=== PATIENT | female | born 1930 | race African-American/Black ===

== ENCOUNTER 2019-04-11 15:47 | Inpatient (IN) | payer OTHER, MEDICAID ==
[~2019-04-11] VITALS: Ht 172.7 cm; Wt 63.5 kg
[2019-04-11 17:05] VITALS: BP_SYST 111
--- NOTE | 2019-04-11 17:05 | NUR ---
ADMISSION NOTE: Received patient from Ambulance via gurney. Patient admitted with diagnosis of renal insufficiency and encephalopathy. Patient is awake, alert, oriented X 1. Patient oriented to hospital room, call light, toileting, pain management and safety-teach back done. Patient informed that their room number is 121 C. Personal belongings checked and Belongings List documented. Call light within reach.
--- NOTE | 2019-04-11 17:10 | NUR ---
INITIAL NOTE: RECEIVED PATIENT FROM AMBULANCE VIA DIRECT ADMIT. PATIENT IS AWAKE AND ALERT x1. PATIENT DENIES ANY PAIN AT THE MOMENT. IV INSERTED INTO RIGHT AC 20G. SUCCESSFUL AFTER ONE ATTEMPT. ASEPTIC TECHNIQUE USED. PATIENT TOLERATED IT WELL. PATIENT IS TOLERATING OXYGEN ON ROOM AIR WITH NO SIGNS OF DISTRESS OR SHORTNESS OF BREATH NOTED. PATIENT IN STABLE CONDITION. SAFETY, FALL AND ASPIRATION PRECAUTIONS ARE IN PLACE. BED LOCKED IN LOWEST POSITION WITH CALL LIGHT IN REACH. WILL CONTINUE TO MONITOR PATIENT FOR ANY CHANGES.
[2019-04-11] MEDS ORDERED: FER300L PO (18:03)
[2019-04-11] MEDS ORDERED: FLEETMO RC (18:03)
[2019-04-11] MEDS ORDERED: INSU100V SQ (18:03)
[2019-04-11] MEDS ORDERED: DONE10TA44 PO (18:03)
[2019-04-11] MEDS ORDERED: INSU100V9 SQ (18:03)
[2019-04-11] MEDS ORDERED: LEVO88TA5 PO (18:03)
[2019-04-11] MEDS ORDERED: DOCU-144 PO (18:03)
[2019-04-11] MEDS ORDERED: MOM PO (18:03)
[2019-04-11] MEDS ORDERED: ACET325T53 PO (18:03)
[2019-04-11] MEDS ORDERED: MULT-1089 PO (18:03)
[2019-04-11] MEDS ORDERED: BISA-79 PR (18:03)
[2019-04-11] MEDS ORDERED: GLU500 PO (18:03)
[2019-04-11] MEDS ORDERED: ASCO500T20 PO (18:03)
[2019-04-11] MEDS ORDERED: ASPI-1155 PO (18:03)
--- NOTE | 2019-04-11 19:30 | NUR ---
Opening notes Received report. Patient is resting in bed. No signs of distress noted. Breathing even and unlabored. IV patent and intact. No signs of infiltration noted. No needs at this time. call light with the patient. Safety precautions in place.
[2019-04-11 20:00] VITALS: BP_SYST 118
--- NOTE | 2019-04-11 20:00 | NUR ---
Spoke to Dr. Chung for orders. Orders given and inputted.
--- NOTE | 2019-04-11 21:00 | NUR ---
Dr. Chung at bedside. Seen and examined patient.
[2019-04-11] MEDS ORDERED: ACETAMINOPHEN 325 MG TABLET PO PRN (21:15)
[2019-04-11] MEDS ORDERED: MINERAL OIL 133 ML ENEMA RC PRN (21:15)
[2019-04-11] MEDS ORDERED: INSULIN LISPRO SLIDING SCALE 100 UNITS/ML VIAL (humaLOG) SQ SCH (21:15)
--- NOTE | 2019-04-11 23:30 | NUR ---
Resting Patient resting. No signs of distress noted. Breathing even and unlabored. IVF started. No needs. Call light with the patient. Safety precautions in place.
[2019-04-11] MEDS: D5/0.45 NS 1,000 ML IV SCH (23:33)
[2019-04-12 01:46] VITALS: BP_SYST 133
--- NOTE | 2019-04-12 02:00 | NUR ---
Sleeping No signs of distress noted. Breathing even and unlabored. IVF infusing well. Call light with the patient. Safety precautions in place.
--- NOTE | 2019-04-12 04:42 | NUR ---
Resting Patient is resting and singing in bed. No signs of distress noted. Breathing even and unlabored. IVF infusing well. Call light with the patient. Safety precautions in place.
[2019-04-12] MEDS: LEVOTHYROXINE SODIUM 0.088 MG TABLET PO SCH (06:00)
[2019-04-12] MEDS: INSULIN GLARGINE 100 UNITS/ML 10 ML VIAL SQ SCH ×2 (06:16→17:00)
[2019-04-12] MEDS: INSULIN LISPRO SLIDING SCALE 100 UNITS/ML VIAL (humaLOG) SUBCUT PRN ×3 (06:17→21:59)
--- NOTE | 2019-04-12 06:49 | NUR ---
Closing notes Patient resting in bed, accucheck 165. insulin given. Educated the action and side effects. Patient verbalized understanding. No signs of distress noted. Breathing even and unlabored. IVF infusing well. Patient incontinent and unable to collect urine sample. Will endorse to day shift. All needs met throughout the shift. call light with the patient. Safety precautions in place. Will endorse care to day shift RN.
--- NOTE | 2019-04-12 06:52 | NUR ---
Nutrition Update Tommie Scale 15 noted. Pt admitted for Renal insufficiency, Encephalopathy Diet: Mechanical soft BMI: 21.3 kg/m2 RD to follow per nutrition care standards.
--- NOTE | 2019-04-12 07:30 | NUR ---
OPENING NOTES: PATIENT IS AWAKE AND ALERT x1 LAYING DOWN IN BED. PATIENT DENIES ANY PAIN AT THE MOMENT. PATIENT IS TOLERATING OXYGEN ON ROOM AIR WITH NO SIGNS OF DISTRESS OR SHORTNESS OF BREATH NOTED. IV SITE INTACT AND RUNNING FLUIDS ORDERED. PATIENT IN STABLE CONDITION. SAFETY, FALL AND ASPIRATION PRECAUTIONS ARE IN PLACE. BED LOCKED IN LOWEST POSITION WITH CALL LIGHT IN REACH. WILL CONTINUE TO MONITOR PATIENT FOR ANY CHANGES.
[2019-04-12 08:00] VITALS: BP_SYST 136
[2019-04-12] MEDS: metFORMIN HCL 500 MG TABLET PO SCH ×3 (08:00→18:00)
[2019-04-12] MEDS: DONEPEZIL HCL 5 MG TABLET (ARICEPT) PO SCH ×2 (09:00→10:53)
[2019-04-12] MEDS: DOCUSATE SODIUM 100 MG CAPSULE PO SCH ×2 (09:00→10:52)
[2019-04-12] MEDS: MULTIVITAMINS TAB 1 TABLET PO SCH ×2 (09:00→10:52)
[2019-04-12] MEDS: BISACODYL 5 MG TABLET.DR (DULCOLAX) PO SCH ×2 (09:00→10:53)
[2019-04-12] MEDS: ASCORBIC ACID 500 MG TABLET PO SCH ×2 (09:00→10:53)
[2019-04-12] MEDS: FERROUS SULFATE 325 MG TABLET.DR PO SCH ×2 (09:00→10:52)
[2019-04-12] MEDS: ASPIRIN 81 MG TAB.CHEW PO SCH ×2 (09:00→10:52)
[2019-04-12 09:19] LABS: BASOPHILS % (AUTO) 0.5 % (0.0-2.0); EOSINOPHILS # (AUTO) 0.1 K/uL (0.0-0.4); EOSINOPHILS % (AUTO) 2.9 % (0.0-4.0); HEMOGLOBIN 12.1 g/dL (12.0-16.0); LYMPHOCYTES # (AUTO) 1.8 K/uL (1.0-5.5); LYMPHOCYTES % (AUTO) 37.9 % (20.5-51.5); MEAN CORPUSCULAR HEMOGLOBIN 30 pg (27-31); MEAN CORPUSCULAR HGB CONC 33 % (32-36); MEAN CORPUSCULAR VOLUME 90 fL (79.0-98.0); MONOCYTES # (AUTO) 0.3 K/uL (0.0-1.0); MONOCYTES % (AUTO) 6.4 % (1.7-9.3); NEUTROPHILS # (AUTO) 2.5 K/uL (1.8-7.7); NEUTROPHILS % (AUTO) 52.3 % (40.0-70.0); PLATELET COUNT (AUTO) 217 K/uL (130-430); RED BLOOD CELL COUNT(AUTO) 4.09 MIL/uL (4.2-6.2); RED CELL DISTRIBUTION WIDTH 14.2 % (9.0-15.0); WHITE BLOOD COUNT (AUTO) 4.8 K/uL (4.8-10.8)
[2019-04-12 09:31] LABS: ALANINE AMINOTRANSFERASE 19 U/L (12-78); ALBUMIN 2.8 g/dL (3.4-4.8); ANION GAP 6 (5-15); ASPARTATE AMINOTRANSFERASE 12 U/L (10-37); CALCIUM 8.4 mg/dL (8.4-11.0); CHLORIDE 102 mmol/L (98-107); CREATININE 0.48 mg/dL (0.55-1.30); GLUCOSE 166 mg/dL (70-99); POTASSIUM 4.4 mmol/L (3.5-5.1); SODIUM SERUM 136 mmol/L (136-145); THYROID STIMULATING HORMONE 2.32 uIu/mL (0.36-3.74); TOTAL BILIRUBIN 1.1 mg/dL (0.0-1.0); UREA NITROGEN, BLOOD 15 mg/dL (8-21)
[2019-04-12 09:57] LABS: CHOLESTEROL 102 mg/dL (<200); HDL CHOLESTEROL 51 mg/dL (>55); LDL CHOLESTEROL 40 mg/dL (<100); TRIGLYCERIDES 77 mg/dL (30-150)
--- NOTE | 2019-04-12 10:05 | NUR ---
RN ROUNDS: PATIENT IS ASLEEP LAYING DOWN IN BED. NO SIGNS OF DISTRESS OR SHORTNESS OF BREATH NOTED. PATIENT IN STABLE CONDITION. WILL CONTINUE TO MONITOR PATIENT FOR ANY CHANGES.
--- NOTE | 2019-04-12 10:33 | NUR ---
Nephro consult called: for Dr. Andre, regarding renal insufficiency, ordered by Dr. Chung, spoke with Fanny.
[2019-04-12 12:03] VITALS: BP_SYST 126
--- NOTE | 2019-04-12 12:10 | NUR ---
RN ROUNDS: PATIENT IS AWAKE AND ALERT x 1 LAYING DOWN IN BED. PATIENT DENIES ANY PAIN AT THE MOMENT. NO SIGNS OF DISTRESS OR SHORTNESS OF BREATH NOTED. PATIENT IN STABLE CONDITION.
[2019-04-12] MEDS: D5/0.45 NS 1,000 ML IV SCH (12:31)
--- NOTE | 2019-04-12 14:30 | NUR ---
RN ROUNDS: PATIENT IS AWAKE AND ALERT x1 LAYING DOWN WATCHING TELEVISION IN BED. NO SIGNS OF DISTRESS OR SHORTNESS OF BREATH NOTED. PATIENT DENIES ANY PAIN AT THE MOMENT. PATIENT IN STABLE CONDITION. WILL CONTINUE TO MONITOR PATIENT FOR ANY CHANGES.
[2019-04-12 16:18] VITALS: BP_SYST 126
--- NOTE | 2019-04-12 16:20 | NUR ---
RN ROUNDS: PATIENT IS ASLEEP IN BED. NO SIGNS OF DISTRESS OR SHORTNESS OF BREATH NOTED. PATIENT IN STABLE CONDITION. WILL CONTINUE TO MONITOR PATIENT FOR ANY CHANGES.
--- NOTE | 2019-04-12 17:30 | NUR ---
MD ROUNDS: DR. LEVY MAKING HIS ROUNDS. AWARE OF PATIENT'S CONDITION. NEW ORDERS GIVEN.
--- NOTE | 2019-04-12 18:31 | NUR ---
CLOSING NOTES: PATIENT IS AWAKE AND ALERT x1 LAYING DOWN IN BED. PATIENT DENIES ANY PAIN AT THE MOMENT. PATIENT IS TOLERATING OXYGEN ON ROOM AIR WITH NO SIGNS OF DISTRESS OR SHORTNESS OF BREATH NOTED. IV SITE INTACT AND RUNNING FLUIDS ORDERED. PATIENT IN STABLE CONDITION. SAFETY, FALL AND ASPIRATION PRECAUTIONS REMAINED IN PLACE THROUGHOUT THE SHIFT. BED LOCKED IN LOWEST POSITION WITH CALL LIGHT IN REACH. WILL ENDORSE PATIENT CARE TO ONCOMING HUMAN RESOURCES CLERK NURSE.
[2019-04-12 19:00] VITALS: BP_SYST 125
--- NOTE | 2019-04-12 19:15 | NUR ---
change of shift.pt.presents quiescent affect;calm,resting.pt.presents iv access intact;patent iv fluids infusing. general status stable.respiratory status stable;unlabored:@tra air.call light/telephone w/in reach of the pt.
[2019-04-12 20:00] VITALS: BP_SYST 125
--- NOTE | 2019-04-12 20:00 | NUR ---
pt.assessed.v/s assessed;values w/inn nropa m,limits.pt prst affxctc;aclm,loc;confused.no c/o pain,nausea.pt.presents iv access intact; patent iv fluids infusing.general status stable.respiratory status stable;unlabored.no o2 therapy administered.02-sat%=96% @room air.pt.assessed for cleanliness.pt.repositioned.call light/telephone placed w/in reach of the pt.
--- NOTE | 2019-04-12 20:30 | NUR ---
i have assessed the blood glucose;value;227mg/dl.i have apprised the pt.of the value.
[2019-04-12] MEDS: MILK OF MAGNESIA 30 ML UDC PO SCH (21:00)
--- NOTE | 2019-04-12 21:00 | NUR ---
2100pmedication;mo.pt.refused the administration:mom.i reviewed the indication for the medication.pt awais;refused . Addendum: 04/13/19 at 0132 by Augustin Patricia RN i have administered insulin;humalog;4-u per the sliding scale.
--- NOTE | 2019-04-12 22:00 | NUR ---
pt.assessed.pt.presents quiescent affect;calm.resting.no c/o pain,nausea.pt.assessed for cleanliness.pt repositioned.iv access intact;patent iv fluids infusing.general statu stable.respiratory status stable;unlabored.02-sat%=96%.call light/telephone placed \ w/in reach of the pt.
--- NOTE | 2019-04-13 | NUR ---
pt.assessed.v/s assessed:values w/in normal limits.pt.assessed for cleanliness.pt.repositioned.iv access intact patent: iv fluids infusing. general status stable.respiratory status stable;02-sat%=96%.no c/o pain,nausea.call light/telephone placed w/in reach of the pt.
[2019-04-13 01:48] VITALS: BP_SYST 133
--- NOTE | 2019-04-13 02:00 | NUR ---
pt.assessed.pt.presents quiescent affect;calm,somnolent.pt.assessed for cleanliness.pt.repositioned.iv fluids infusing. general statu stable.respiratory status stable;unlabored.call light/telephone paled w/in the reach of the pt.
--- NOTE | 2019-04-13 04:00 | NUR ---
pt.assessed.pt.presents quiescent affect;calm,somnolent.pt assessed for cleanliness.pt.repositioned.iv access intact;patent. general statu stable.respiratory status stable;unlabored.call light/telephone placed w/in reach of the pt.
[2019-04-13] MEDS: LEVOTHYROXINE SODIUM 0.088 MG TABLET PO SCH (05:49)
[2019-04-13] MEDS: D5/0.45 NS 1,000 ML IV SCH ×2 (05:49→15:00)
[2019-04-13] MEDS: INSULIN LISPRO SLIDING SCALE 100 UNITS/ML VIAL (humaLOG) SUBCUT PRN ×4 (05:55→22:09)
[2019-04-13] MEDS: INSULIN GLARGINE 100 UNITS/ML 10 ML VIAL SQ SCH ×2 (05:57→17:52)
--- NOTE | 2019-04-13 06:30 | NUR ---
pt.assessed.pt.assessed for cleanliness.pt repositioned.i have changed the iv fluids bag.i have assessed the blood glucose;values;158mg/dl. i have administered insulin:humalo-units peer sliding scale..i have administered lantus;5units;scheduled.no c/o pain, nausea.call light/telephone placed w/in reach of the pt.
--- NOTE | 2019-04-13 08:00 | NUR ---
received awake and in no c/o discomfort vss repositioned in bed incontinent and cleaned iv infusing set up for breakfast continue to monitor
[2019-04-13] MEDS: BISACODYL 5 MG TABLET.DR (DULCOLAX) PO SCH (09:00)
[2019-04-13] MEDS: DOCUSATE SODIUM 100 MG CAPSULE PO SCH (10:02)
[2019-04-13] MEDS: metFORMIN HCL 500 MG TABLET PO SCH ×2 (10:02→18:56)
[2019-04-13] MEDS: MULTIVITAMINS TAB 1 TABLET PO SCH (10:02)
[2019-04-13] MEDS: ASPIRIN 81 MG TAB.CHEW PO SCH (10:02)
[2019-04-13] MEDS: ASCORBIC ACID 500 MG TABLET PO SCH (10:02)
[2019-04-13] MEDS: DONEPEZIL HCL 5 MG TABLET (ARICEPT) PO SCH (10:02)
[2019-04-13] MEDS: FERROUS SULFATE 325 MG TABLET.DR PO SCH (10:03)
[2019-04-13 12:12] VITALS: BP_SYST 135
[2019-04-13 16:13] VITALS: BP_SYST 132
--- NOTE | 2019-04-13 17:30 | NUR ---
Nutrition Assessment (short note d/t high patient load) A - RD reviewed pertinent nutrition-related info via EMR (physician notes/nursing notes/labs/meds/nursing care trends/care activity). Admission Dx: Renal insufficiency, encephalopathy PMH: DM, dementia, HTN, OA, anemia, thyroid Dz, increased generalized muscle weakness per physician notes Current Diet Order/Nutrition Support: Mechanical soft x1 day Ht: 68"/5'8" Wt: 141#/64 kg IBW: 140#/64 kg %IBW: 100% UBW: Unknown %UBW: Unknown BMI: 21.3 kg/m2 (normal) Subjective Info: RD Notification received for unintentional wt loss in the last 3 months and pt eating poorly greater than 1 week TARGET MAN. Pt was seen resting in bed earlier today. Pt reported good appetite, tolerating diet well. Pt refused GT placement per physician notes. Per EMR, PO intake records indicated 75% average x3 meals. Pt was unable to clearly respond to other RD verbal interview questions. Nutrition education is not appropriate. ESTIMATED NUTRITIONAL NEEDS CALORIES/DAY: 1980-4327 kcal/day (25-30 kcal/kg CBW for geriatric maintenance) PROTEIN/DAY: 64-77 gm/day (1-1.2 gm/kg CBW for geriatric maintenance) FLUID/DAY: 1.6-2 L/day (1 ml/kcal/day for maintenance) D - Altered nutrition-related labs related to endocrine dysfunction as evidenced by elevated BG and POC BG lab values. Suboptimal PO intakes related to possible lack of appetite TARGET MAN as evidenced by nursing trigger indicating pt eating poorly greater than 1 week. I - Recommend mechanical soft, CCHO diet w/ Glucerna BID (ONS provides 440 kcal/day, 20 gm protein/day) M - Monitor appetite and PO intakes w/ goal of pt meeting at least 80% of estimated nutritional needs, labs trending WNL, normal GI function, and skin integrity/wt maintenance E - Moderate risk; F/U within 3-5 days
--- NOTE | 2019-04-13 17:35 | NUR ---
Dietitian Recommendations * Recommend mechanical soft, CCHO diet w/ Glucerna BID (ONS provides 440 kcal/day, 20 gm protein/day) LP, RD Please refer to Nutrition Assessment fo details.
--- NOTE | 2019-04-13 19:00 | NUR ---
1800 removed iv and new attempt made but refusing and will endorse to shift production associate to start later repositioned in bed no c/o discomfort.
[2019-04-13 20:00] VITALS: BP_SYST 131
[2019-04-13] MEDS: MILK OF MAGNESIA 30 ML UDC PO SCH (21:53)
[2019-04-13 23:57] VITALS: BP_SYST 108
[2019-04-14] MEDS: D5/0.45 NS 1,000 ML IV SCH ×2 (04:20→17:32)
[2019-04-14] MEDS: INSULIN LISPRO SLIDING SCALE 100 UNITS/ML VIAL (humaLOG) SUBCUT PRN ×2 (06:12→12:14)
[2019-04-14] MEDS: LEVOTHYROXINE SODIUM 0.088 MG TABLET PO SCH (06:15)
[2019-04-14] MEDS: INSULIN GLARGINE 100 UNITS/ML 10 ML VIAL SQ SCH ×2 (07:50→17:35)
[2019-04-14 08:25] VITALS: BP_SYST 105
[2019-04-14] MEDS: DOCUSATE SODIUM 100 MG CAPSULE PO SCH (09:29)
[2019-04-14] MEDS: metFORMIN HCL 500 MG TABLET PO SCH ×3 (09:29→18:00)
[2019-04-14] MEDS: DONEPEZIL HCL 5 MG TABLET (ARICEPT) PO SCH (09:29)
[2019-04-14] MEDS: ASPIRIN 81 MG TAB.CHEW PO SCH (09:29)
[2019-04-14] MEDS: FERROUS SULFATE 325 MG TABLET.DR PO SCH (09:30)
[2019-04-14] MEDS: MULTIVITAMINS TAB 1 TABLET PO SCH (09:30)
[2019-04-14] MEDS: BISACODYL 5 MG TABLET.DR (DULCOLAX) PO SCH (09:30)
[2019-04-14] MEDS: ASCORBIC ACID 500 MG TABLET PO SCH (09:30)
--- NOTE | 2019-04-14 09:30 | NUR ---
Routine Scheduled medications given per order. Patient stable at this time.
[2019-04-14 11:26] VITALS: BP_SYST 99
--- NOTE | 2019-04-14 14:30 | NUR ---
Discharge Planning: DCP faxed pt referral to [facility] (f [phone] p [phone]) DCP to follow up, CM talk to Heike sierra was received. Addendum: 04/14/19 at 1613 by Zelda Trejo DP [facility] (f [phone] p [phone]) [address], [facility] ([phone]) 6:30pm P/U. Patient packet takent to nurse station.
--- NOTE | 2019-04-14 15:17 | NUR ---
DC PLANNING Discussed w Marii Myrick, states pt case was reviewed by herself & Physician Advisor, pt not meeting inpt criteria & billing as Observation. I called & left ms w with Monserrat Lizama, ph [phone], informing that not meeting inpt criteria going to be billed as observation status. Also left ms that plan for pt to dc back to [facility] today. Called & spoke w Dr Chung, gave ph order to dc back to [facility]. Informed that Phys Advisor & Director reviewed pt case & not meeting inpt criteria & billing as observation status. Per Dr Chung he is not converting to inpt that pt had Acute Encephalopathy as well as acute renal failure. Called & spoke w Heike @ [facility], ph [phone], informed plan for dc back today. Informed her that pt did not meet inpt criteria & billing as Observation status, Pt going back as Assisted pt no Skilled need. Addendum: 04/14/19 at 1607 by Jenni Bansal RN Called & left ms w Monserrat Lizama, Public Guardian, pt going back to [facility] today.
[2019-04-14 15:54] VITALS: BP_SYST 127
--- NOTE | 2019-04-14 17:35 | NUR ---
Routine Checked blood sugar: 133 mg/dl - no coverage required. Scheduled po med given as well. Patient stable at this time.
[2019-04-14 18:01] VITALS: BP_SYST 96
--- NOTE | 2019-04-14 18:15 | NUR ---
Called report Called report to LINCOLN Mojica at [facility].
--- NOTE | 2019-04-14 18:40 | NUR ---
Discharge Patient transferred in stable condition via ambulance to [facility]. Patient will go to Room 121C.
== END 2019-04-14 18:40 | DRG 70 ==
LOC: SMU 17:21
PROVIDERS: ADMIT Internal Medicine; ATTEND Internal Medicine
DX: G93.41 Metabolic encephalopathy (principal); N17.0 Acute kidney failure with tubular necrosis; E86.0 Dehydration; E03.9 Hypothyroidism, unspecified; E11.9 Type 2 diabetes mellitus without complications; F03.90 Unspecified dementia, unspecified severity, without behavioral disturbance, psychotic disturbance, mood disturbance, and anxiety; I10 Essential (primary) hypertension; Z79.899 Other long term (current) drug therapy; Z79.82 Long term (current) use of aspirin
CPT/HCPCS: 36415; 70450-TC; 71045; 80053; 80061; 82962; 84443-TC; 85025; 87081; J1815

== ENCOUNTER 2019-05-30 17:34 | Emergency (ER) | payer OTHER, MEDICAID ==
[~2019-05-30] VITALS: Ht 167.6 cm; Wt 13.6 kg
[~2019-05-30 17:34] MED LIST: ACET325T53 PO; ASCO500T20 PO; ASPI-1155 PO; BISA-79 PR; DOCU-144 PO; DONE10TA44 PO; FER300L PO; FLEETMO RC; GLU500 PO; INSU100V SQ; INSU100V9 SQ; LEVO88TA5 PO; MOM PO; MULT-1089 PO
[2019-05-30 17:35] VITALS: BP_SYST 142
--- NOTE | 2019-05-30 17:35 | NUR ---
Pt triaged remaining on EMS, pt remains on EMS gurney
--- NOTE | 2019-05-30 17:50 | NUR ---
Pt refusing labs
--- NOTE | 2019-05-30 18:20 | NUR ---
Patient transported to radiology via gurney, accompanied by rad staff.
--- NOTE | 2019-05-30 18:30 | NUR ---
Returned from radiology, back to [facility].
--- NOTE | 2019-05-30 19:00 | NUR ---
Patient to ER bed 7 to gown for evaluation. Side rails up. Report given to Nelli STARK.
[2019-05-30] MEDS ORDERED: LORazepam 2 MG/ML VIAL IM ONE (19:15)
--- NOTE | 2019-05-30 19:30 | NUR ---
Patient brought in S for medical clearance prior to transfer to [facility] Rm 56B. Report from EMT, loss of appetite, increased weakness, and combative. Patient baseline A&O x1. Voiced no complaints. Denies any pain. No other complaints/injuries per patient or as noted. will continue to monitor.
--- NOTE | 2019-05-30 19:54 | NUR ---
# 22 gauge angiocath placed to right hand. Use of asceptic technique. Opsite placed over site. Blood return noted. Flushed with 10 cc of normal saline. No evidence of infiltration noted. Patient tolerated well.
--- NOTE | 2019-05-30 20:07 | NUR ---
# 16 FR In and Out catheter with use of sterile technique. Immediate return of 700ml clear straw urine noted. Urine sample collected and sent to lab. Pt tolerated procedure well Patient unable to toilet self.
[2019-05-30 20:18] LABS: BILIRUBIN,URINE NEGATIVE (NEGATIVE); BLOOD, URINE NEGATIVE (NEGATIVE); CLARITY/URINE CLEAR (CLEAR); COLOR,URINE YELLOW (YELLOW); GLUCOSE,URINE 3+ (NEGATIVE); KETONES,URINE NEGATIVE (NEGATIVE); LEUKOCYTE ESTERASE ,URINE NEGATIVE (NEGATIVE); NITRITE, URINE POSITIVE (NEGATIVE); PROTEIN URINE NEGATIVE (NEGATIVE); UROBILINOGEN,URINE 0.2 (0.2-1.0)
[2019-05-30 20:20] LABS: BASOPHILS # (AUTO) 0.1 K/uL (0.0-0.2); BASOPHILS % (AUTO) 1.1 % (0.0-2.0); EOSINOPHILS # (AUTO) 0.2 K/uL (0.0-0.4); EOSINOPHILS % (AUTO) 2.7 % (0.0-4.0); HEMATOCRIT 38.5 % (36-48); HEMOGLOBIN 12.5 g/dL (12.0-16.0); LYMPHOCYTES # (AUTO) 1.9 K/uL (1.0-5.5); LYMPHOCYTES % (AUTO) 32.2 % (20.5-51.5); MEAN CORPUSCULAR HEMOGLOBIN 30 pg (27-31); MEAN CORPUSCULAR HGB CONC 32 % (32-36); MEAN CORPUSCULAR VOLUME 92 fL (79.0-98.0); MONOCYTES # (AUTO) 0.5 K/uL (0.0-1.0); MONOCYTES % (AUTO) 7.9 % (1.7-9.3); NEUTROPHILS # (AUTO) 3.4 K/uL (1.8-7.7); NEUTROPHILS % (AUTO) 56.1 % (40.0-70.0); PLATELET COUNT (AUTO) 224 K/uL (130-430); RED CELL DISTRIBUTION WIDTH 14.2 % (9.0-15.0); WHITE BLOOD COUNT (AUTO) 6.1 K/uL (4.8-10.8)
[2019-05-30 20:35] LABS: ANION GAP 9 (5-15); CALCIUM 9.1 mg/dL (8.4-11.0); CHLORIDE 102 mmol/L (98-107); CREATININE 0.61 mg/dL (0.55-1.30); GLUCOSE 224 mg/dL (70-99); POTASSIUM 4.6 mmol/L (3.5-5.1); SODIUM SERUM 137 mmol/L (136-145); UREA NITROGEN, BLOOD 16 mg/dL (8-21)
[2019-05-30] MEDS ORDERED: INSU100V42 SQ (20:35)
[2019-05-30 20:40] LABS: ALANINE AMINOTRANSFERASE 19 U/L (12-78); ALBUMIN 3.1 g/dL (3.4-4.8); ASPARTATE AMINOTRANSFERASE 17 U/L (10-37); TOTAL BILIRUBIN 0.5 mg/dL (0.0-1.0)
[2019-05-30] MEDS ORDERED: LEVO88TA5 PO (20:50)
[2019-05-30] MEDS ORDERED: MOM PO (20:50)
[2019-05-30] MEDS ORDERED: ACET325C6 PO (20:50)
[2019-05-30] MEDS ORDERED: GLU500 PO (20:50)
[2019-05-30] MEDS ORDERED: ACET-2634 PO (20:50)
[2019-05-30] MEDS ORDERED: GLUC1VIA SQ (20:50)
[2019-05-30] MEDS ORDERED: NA P133E41 RC (20:50)
[2019-05-30] MEDS ORDERED: MULT-1189 PO (20:50)
[2019-05-30 21:16] LABS: RBC,URINE 0-3 /HPF (0-3)
[2019-05-30 21:17] LABS: WBC,URINE 0-3 /HPF (0-3)
[2019-05-30 21:20] LABS: BACTERIA,URINE MODERATE /HPF (None Seen)
[2019-05-30] MEDS ORDERED: cefTRIAXone 1 GM in D5W 50 ML IV ONE (22:00)
--- NOTE | 2019-05-30 22:09 | NUR ---
Rocephin 1 gm IVPB started Patient tolerating well. Will continue to monitor
[2019-05-30] MEDS ORDERED: cefTRIAXone 1 GM VIAL ONE (22:19)
--- NOTE | 2019-05-30 22:31 | NUR ---
Patient to be transferred to [facility] Bed 56 B. Is being transferred due to higher level of care. Receiving facility has accepting physician and available space. ER physician has signed transfer form. Patient or responsible alliance party has agreed to transfer and signed form. Patient belongings inventoried and will be sent with patient. Copy of nursing notes, lab reports, EKG, Physicians Orders and X-rays to be sent with patient. Report called to LINCOLN Elmore at receiving facility. Receiving physician is Dr. Yo. [facility] ambulance present for transfer.
[2019-05-30 22:32] VITALS: BP_SYST 127
[2019-05-30 22:48] LABS: CHOLESTEROL 115 mg/dL (<200); HDL CHOLESTEROL 69 mg/dL (>55); LDL CHOLESTEROL 34 mg/dL (<100); TRIGLYCERIDES 74 mg/dL (30-150)
== END 2019-05-30 22:32 ==
LOC: SED 17:34
DX: N39.0 Urinary tract infection, site not specified (principal); Z79.4 Long term (current) use of insulin; Z79.82 Long term (current) use of aspirin; Z79.899 Other long term (current) drug therapy
CPT/HCPCS: 36415; 71045; 80053; 80061; 81000; 83036; 83880; 84484; 85025; 87081; 87086; 93005; 96365; 96372; 99285; J0696; J2060